=== PATIENT | male | born 2000 | race Caucasian/White ===

== ENCOUNTER → 2022-01-12 | Outpatient (CLI) | payer OTHER | LOC: M RAD 11:40 | PROVIDERS: ATTEND Family Medicine Addiction Medicine | DX: R05.9 Cough, unspecified (principal) ==

== ENCOUNTER 2025-02-03 17:32 | Inpatient (IN) | payer OTHER ==
[2025-02-03 18:45] LABS: PLATELET COUNT, AUTOMATED 212 10^3/uL (150-450)
[2025-02-03 19:09] LABS: ALT/SGPT 14 U/L (7.0-40); CALCIUM LEVEL 9.7 MG/DL (8.5-10.1); CARBON DIOXIDE LEVEL 26 MMOL/L (20-31); CHLORIDE LEVEL 105 MMOL/L (98-107); CREATININE FOR GFR 1.08 MG/DL (0.70-1.30); GLOMERULAR FILTRATION RATE > 90.0 (>60); POTASSIUM SERUM 4.3 MMOL/L (3.5-5.1); SALICYLATE LEVEL < 3.0 MG/DL (<30); SODIUM LEVEL 141 MMOL/L (136-145)
[2025-02-03 19:13] LABS: ETHYL ALCOHOL (ETHANOL) 0.003 % (0.000-0.010)
[2025-02-03 19:14] LABS: AMPHETAMINES LEVEL URINE NEGATIVE (NEGATIVE); BARBITURATES URINE NEGATIVE (NEGATIVE); METHADONE URINE NEGATIVE (NEGATIVE); OPIATES URINE NEGATIVE (NEGATIVE); PHENCYCLIDINE URINE NEGATIVE (NEGATIVE)
[2025-02-03 19:15] LABS: BENZODIAZEPINES URINE NEGATIVE (NEGATIVE); COCAINE METABOLITE URINE NEGATIVE (NEGATIVE)
[2025-02-03 19:17] LABS: CANNABINOIDS URINE POSITIVE (NEGATIVE)
[2025-02-03] MEDS ORDERED: ACETAMINOPHEN 325 MG TAB PO PRN (21:00)
[2025-02-03] MEDS ORDERED: MOM 30 ML SUSPENSION UDC PO PRN (21:00)
[2025-02-03] MEDS ORDERED: traZODone 50 MG TAB PO PRN (21:00)
[2025-02-03] MEDS ORDERED: IBUPROFEN 400 MG TAB PO PRN (21:00)
[2025-02-03] MEDS ORDERED: MAALOX 30 ML SUSP *UDC PO PRN (21:00)
[2025-02-03] MEDS ORDERED: HOME MED LIST COMPLETE! XX SCH (21:20)
[2025-02-04 15:35] VITALS: BP 136/72; TEMP 97.5; O2SAT 100
[2025-02-04 17:27] VITALS: BP 136/72; TEMP 97.5; O2SAT 100
[2025-02-05 06:40] VITALS: BP 119/63; TEMP 97.7; O2SAT 100
[2025-02-05 07:07] LABS: AST/SGOT 16 U/L (<34)
[2025-02-05 11:50] VITALS: BP 119/63; TEMP 97.7; O2SAT 100
== END 2025-02-05 11:41 | disposition home or self-care (01) | DRG 757 ==
LOC: M ED 17:32 → M ED INP 20:56 → M PSY 02-04 00:57
PROVIDERS: ADMIT Psychiatry & Neurology Neurology; ATTEND General Practice
DX: F84.0 Autistic disorder (principal); F43.21 Adjustment disorder with depressed mood; Z63.8 Other specified problems related to primary support group